=== PATIENT | male | born 1960 | race Caucasian/White ===

== ENCOUNTER 2018-11-04 16:45 | Emergency (ER) | payer SELFPAY ==
[~2018-11-04] VITALS: Ht 172.7 cm; Wt 77.1 kg
[2018-11-04 17:10] VITALS: BP_SYST 119
--- NOTE | 2018-11-04 17:10 | NUR ---
Patient triaged and placed in waiting room. VSS and patient appears in no acute distress at this time. Accompanied by FAMILY, awaiting available bed, and MD notified of need for MSE.
--- NOTE | 2018-11-04 18:15 | NUR ---
SEEN AND EVALUATED BY PAIGE LISA IN TRIAGE ROOM .
[2018-11-04 19:07] VITALS: BP_SYST 127
--- NOTE | 2018-11-04 19:08 | NUR ---
Patient given written and verbal discharge instructions and verbalizes understanding. ER MD discussed with patient the results and treatment provided. Patient in stable condition. ID arm band removed. Rx of ACYCLOVIR, MOTRIN AND NORCO given. Patient educated on pain management and to follow up with PMD. Pain Scale 0/10. Opportunity for questions provided and answered. Medication side effect fact sheet provided.
== END 2018-11-04 19:08 | disposition home or self-care (01) ==
LOC: SED 16:45
DX: B02.9 Zoster without complications (principal); Z88.5 Allergy status to narcotic agent
CPT/HCPCS: 99283